=== PATIENT | female | born 1945 | race Caucasian/White ===

== ENCOUNTER 2024-06-27 22:03 | Emergency (ER) | payer MEDICARE, SELFPAY ==
[2024-06-27 22:06] VITALS: BP 129/69; PULSE 63; RESP 16; TEMP 36.2; O2SAT 98; BMI 28.3
--- NOTE | 2024-06-27 22:26 | DI.CT.S_ITS ---
PROCEDURE: CT ANGIO HEAD AND NECK INDICATIONS: slurred speech, droop TECHNIQUE: After the administration of intravenous contrast, 1 mm thick sections acquired from the aortic arch through the [place] of [place]. 3-dimensional gykkjjj-cwuhgsenx-tabfpsmpcm (MIP) and/or volume rendering reformats were acquired of the central intracranial vasculature and neck separately. For radiation dose reduction, the following was used: automated exposure control, adjustment of mA and/or kV according to patient size. COMPARISON: None. FINDINGS: Image quality: Diagnostic. BRAIN: No significant change since same day head CT. HEAD CT ANGIOGRAPHY: Anterior circulation: Intracranial internal carotid arteries are normal in size and flow. The flow within the paired anterior cerebral arteries is normal and symmetric. The flow within the middle cerebral arteries is normal and symmetric. The anterior communicating artery is seen. No aneurysms are seen. Posterior circulation: Visualized portions of the vertebral arteries demonstrate normal caliber, and join to form a normal appearing basilar artery. Flow within the posterior cerebral arteries is normal and symmetric. No aneurysms are seen. NECK CT ANGIOGRAPHY: Carotid system: The great vessels demonstrate a conventional anatomy as they arise from the aortic arch. The origins of the common carotid arteries appear patent. The common carotid arteries demonstrate normal caliber and courses. The bifurcation regions are both widely patent. The internal carotid arteries demonstrate normal calibers and courses. Posterior circulation: The origins of the vertebral arteries both appear widely patent. The more superior extracranial portions of both vertebral arteries also demonstrate normal courses and calibers. They join to form a normal appearing basilar artery. Soft tissues: Visualized neck soft tissues demonstrate no suspicious abnormalities. Bones: No suspicious bony lesions. Visualized cervical spine appears normally aligned. IMPRESSION: No significant intracranial arterial abnormality is seen. No significant abnormality is seen within the arteries of the neck. Any quantitative measurements of stenosis were performed using NASCET criteria. Dictated by: Sha Rosenberg M.D. on 06/27/2024 at 23:02 Approved by: Sha Rosenberg M.D. on 06/27/2024 at 23:04
--- NOTE | 2024-06-27 22:26 | EKG_ITS ---
[address] [address] Test Date: 2024-06-28 Pat Name: Blanca Burkett Department: [facility] Room: Gender: Female [employer] Specialist: INDRA : 1945 Requested By: Order Number: [id number] Reading MD: Noe Bartlett MD Measurements Intervals [place] Rate: 61 P: 55 VA: 184 QRS: 1 QRSD: 78 T: 61 QT: 406 QTc: 408 Interpretive Statements Normal sinus rhythm Possible Anterior infarct , age undetermined Electronically Signed On 06-28-2024 16:29:49 PDT by Noe Bartlett MD
--- NOTE | 2024-06-27 22:26 | DI.CT.S_ITS ---
PROCEDURE: CT STROKE INDICATIONS: slurred speech TECHNIQUE: Noncontrast 4.5 mm thick angled axial sections acquired from the foramen magnum to the vertex, with coronal reformats. For radiation dose reduction, the following was used: automated exposure control, adjustment of mA and/or kV according to patient size. COMPARISON: None. FINDINGS: Image quality: Diagnostic. CSF spaces: Basal cisterns are patent. No extra-axial fluid collections. The ventricles are symmetric in size and shape. Brain: No intracranial bleeds or masses. There is cerebral volume loss for age, with resultant ventricular and sulcal prominence. There are periventricular and deep white matter chronic small vessel ischemic changes. There is intracranial internal carotid artery atherosclerosis. Skull and face: Calvarium and visualized facial bones appear intact, without suspicious lesions. Sinuses: Visualized sinuses and mastoids are clear. IMPRESSION: No acute intracranial pathology. Findings discussed with Dr. Sutton at 10:55 p.m. On 06/27/2024. This study fulfills neurological imaging criteria for inclusion or exclusion of acute stroke therapies based on available published neurological guidelines. Dictated by: Sha Rosenberg M.D. on 06/27/2024 at 22:54 Approved by: Sha Rosenberg M.D. on 06/27/2024 at 22:56
--- NOTE | 2024-06-27 22:30 | PC.NURSE ---
EMD Mank advised about pt symptoms. Orders placed.
[2024-06-27 22:55] LABS: Hematocrit 41.1 % (36-46); Hemoglobin 13.6 g/dL (12.0-16.0); Mean Corpuscular HGB Conc 33.1 % (30-36); Mean Corpuscular Hemoglobin 28.9 PG (26-34); Mean Corpuscular Volume 87.3 fL (80-100); Platelet Count 307 X10^3/uL (150-400); Red Cell Distribution Width 15.1 % (11.6-14.8); White Blood Cell Count 11.6 X10^3/uL (4.5-11.0)
[2024-06-27 22:57] LABS: Add Manual Diff / Slide Review YES
[2024-06-27 23:03] LABS: INR 0.9 (0.9-1.3); Prothrombin Time 10.2 SECONDS (9.4-12.5)
[2024-06-27 23:06] LABS: PTT Partial Thromboplastin Tim 20 SECONDS (25.1-36.5)
[2024-06-27 23:20] LABS: Alanine Aminotransferase 23 IU/L (<35); Albumin 3.9 g/dL (3.5-5.0); Albumin Globulin Ratio 1.6 (1.0-2.8); Alkaline Phosphatase 45 U/L (38-126); Aspartate Aminotransferase 41 IU/L (14-36); BUN Creatinine Ratio 28.4 (6-22); Bilirubin Total 1.8 mg/dL (0.2-1.3); Blood Urea Nitrogen 25 mg/dL (7-17); Calcium 8.9 mg/dL (8.4-10.2); Carbon Dioxide 22 mmol/L (22-32); Chloride 106 mmol/L (98-107); Creatine Kinase 62 U/L (30-135); Estimated Glomerular Filt Rate > 60 mL/min (>60); Ethanol (ETOH) < 10 mg/dL; Globulin 2.5 g/dL (1.7-4.1); Glucose 116 mg/dL (80-110); HEMOLYSIS 30 (0-50); Sodium 134 mmol/L (137-145); Total Protein 6.4 g/dL (6.3-8.2); Troponin I < 0.012 ng/mL (0.01-0.034)
[2024-06-27 23:24] LABS: Neutrophils Absolute Manual 8004 /uL (3000-5900); Total Cells Counted 100
[2024-06-27 23:25] LABS: RBC Morphology Normal Morphology
[2024-06-28] VITALS (13 sets, daily range): BP systolic 134–161; BP diastolic 69–92; PULSE 53–67; RESP 18–22; O2SAT 82–100
--- NOTE | 2024-06-28 00:55 | PC.NURSE ---
EMD Delmerk consulted on pt symptoms. Orders placed.
--- NOTE | 2024-06-28 03:27 | ED_ITS ---
HPI - Neuro Symptoms/Deficit General Chief Complaint: Neuro Symptoms/Deficit Stated Complaint: TIA/Mini-Stroke Concern, Slurring Time Seen by Provider: 06/27/24 22:25 Source: patient, RN notes reviewed and old records reviewed Mode of arrival: Ambulatory Limitations: no limitations History of Present Illness HPI Narrative: 78-year-old female with history of hypertension, dyslipidemia, restless leg on aspirin daily. Patient states today at about 8:30 p.m. she had a little sweaty had some trouble talking for about 5 minutes, there was question if there was facial droop different individuals of stated different things. Patient denies any headache, no numbness tingling or weakness, no weakness on 1 side. No chest pain or shortness of breath, no nausea or vomiting, no issues with bowel movements or urination. Patient has not had any new swelling in her extremities. She did eat and drink after the episode. Patient states she is on medication for hypertension, dyslipidemia, no diabetes she takes aspirin 81 mg daily and medication for sling. States she has had a prior bladder sling and esophageal surgery which sounds like a Margie fundoplication from her description. Has antibiotic allergies to clindamycin, nitrofurantoin sulfa. No tobacco, alcohol or recreational drugs. Patient lives in [place], he is currently tearing with friends. Patient states symptoms are resolved she feels back to normal. On Anticoagulants: No Related Data Allergies Allergy/AdvReac Type Severity Reaction Status Date / Time clindamycin Allergy Intermediate Verified 06/27/24 23:00 nitrofurantoin Allergy Intermediate Verified 06/27/24 23:00 Sulfa (Sulfonamide Allergy Intermediate Verified 06/27/24 23:00 Antibiotics) Review of Systems Review of Systems ROS Unobtainable: All systems reviewed & are unremarkable except as noted in HPI and below Hematologic/Lymphatic On Anticoagulants: No Patient History Social History Smoking Status: Never smoker Smoking Status: Never smoker Exam Narrative Exam Narrative: GEN: well nourished, well appearing female, alert and oriented x 3, patient appears to be in no acute distress. HEENT: Atraumatic, pupils are equal round reactive to light, extraocular movements are intact, nares are clear, TMs are clear with no fluid, there is no conjunctival pallor. Throat is clear without any exudates, erythema, tonsillar enlargement or uvular deviation, no facial droop HEART: Regular rate and rhythm without murmur, clicks, rubs. LUNGS:Lungs clear to auscultation, no wheezes, rales, crackles, chest moves symmetrically ABD:bowel sounds normal, soft, non-tender, no guarding, rebound, rigidity, no masses noted, no hepatosplenomegaly MSCL: Non-tender, no muscle atrophy, muscles strength 5/5 upper and lower extremities, full range of motion, normal gait NEURO:CN 2-12 intact, sensation normal, finger nose finger test normal, heel aguirre test normal, no aphasia or dysarthria. Initial Vital Signs Initial Vital Signs: Vital Signs Temperature 97.1 F L 06/27/24 22:06 Pulse Rate 63 06/27/24 22:06 Respiratory Rate 16 06/27/24 22:06 Blood Pressure 129/69 06/27/24 22:06 Pulse Oximetry 98 06/27/24 22:06 Oxygen Delivery Method Room Air 06/27/24 22:06 Scores NIH Stroke Scale Level of Conciousness: Alert, keenly responsive Ask month/age: Answers both questions correctly. Open/close eyes, close hand: Performs both tasks correctly Best gaze horizontal: Normal Visual lake: No visual loss Facial palsy: Normal symetrical movement Left arm drift: No drift for full 10 sec Right arm drift: No drift for full 10 sec Left leg drift: No drift for full 5 sec Right leg drift: No drift for full 5 sec Limb ataxia: Absent Sensory on face/arms/legs: Normal, no sensory loss Best language: No aphasia, normal Dysarthria: Normal Extinction or inattention: No abnormality Total NIH Stroke scale score: 0 Course Orders Ordered: ED Orders 06/27/24 22:[address] angio head and neck Stat Urine Drug Screen, Rapid Stat EKG-12 Lead Stat 06/27/24 22:37 Complete Blood Count AUTO DIFF Stat Comprehensive Metabolic Panel Stat Ethanol (ETOH) Stat PTT Partial Thromboplastin [place] Stat Prothrombin Time INR Stat Troponin & CK Cardiac Panel Stat 06/28/24 03:25 Urinalysis and Microscopic Stat Vital Signs Vital signs: Vital Signs - 8 hr 06/28/24 01:22 06/28/24 01:23 06/28/24 01:23 Pulse Rate 59 L 60 Respiratory Rate Blood Pressure 134/76 Pulse Oximetry 82 L 100 06/28/24 01:30 06/28/24 01:30 06/28/24 02:00 Pulse Rate 60 Respiratory Rate Blood Pressure 135/85 146/92 H Pulse Oximetry 100 06/28/24 02:00 06/28/24 02:30 06/28/24 02:31 Pulse Rate 58 L 53 L Respiratory Rate Blood Pressure 139/69 Pulse Oximetry 100 100 06/28/24 02:31 06/28/24 03:00 06/28/24 03:00 Pulse Rate 54 L 59 L Respiratory Rate Blood Pressure 145/83 H Pulse Oximetry 98 100 06/28/24 03:28 06/28/24 03:28 06/28/24 03:30 Pulse Rate 64 Respiratory Rate Blood Pressure 147/75 H 159/76 H Pulse Oximetry 92 06/28/24 03:30 06/28/24 04:00 06/28/24 04:00 Pulse Rate 62 55 L Respiratory Rate Blood Pressure 157/74 H Pulse Oximetry 100 97 06/28/24 04:30 06/28/24 04:30 06/28/24 05:00 Pulse Rate 64 Respiratory Rate Blood Pressure 139/90 161/73 H Pulse Oximetry 94 06/28/24 05:00 06/28/24 05:30 06/28/24 05:30 Pulse Rate 63 67 Respiratory Rate 22 18 Blood Pressure 149/71 H Pulse Oximetry 98 96 MDM - Neuro Symptoms/Deficit Lab Data 06/27/24 22:37 06/27/24 22:37 Labs: Lab Results 06/27/24 06/28/24 06/28/24 Range/Units 22:37 03:25 03:25 WBC 11.6 H (4.5-11.0) X10^3/uL RBC 4.70 (4.0-5.2) X10^6/uL Hgb 13.6 (12.0-16.0) g/dL Hct 41.1 (36-46) % MCV 87.3 (80-100) fL MCH 28.9 (26-34) PG MCHC 33.1 (30-36) % RDW 15.1 H (11.6-14.8) % Plt Count 307 (150-400) X10^3/uL Neut % (Auto) Not Reportable Lymph % (Auto) Not Reportable [place] % (Auto) Not Reportable Eos % (Auto) Not Reportable Baso % (Auto) Not Reportable Lymph # (Auto) Not Reportable [place] # (Auto) Not Reportable Baso # (Auto) Not Reportable Total Counted 100 Seg Neutrophils % 69.0 (38-70) % Lymphocytes % (Manual) 20.0 L (25-45) % Monocytes % (Manual) 5.0 (2-11) % Eosinophils % (Manual) 2.0 (2-4) % Metamyelocytes % 3.0 H (-0) % Myelocytes % 1.0 H (-0) % Neutrophils # (Manual) 8004 H (4186-0759) /uL RBC Morphology Normal morphology PT 10.2 (9.4-12.5) SECONDS INR 0.9 (0.9-1.3) APTT 20 L (25.1-36.5) SECONDS Sodium 134 L (137-145) mmol/L Potassium 4.0 (3.4-5.1) mmol/L Chloride 106 (98-107) mmol/L Carbon Dioxide 22 (22-32) mmol/L BUN 25 H (7-17) mg/dL Creatinine 0.88 (0.52-1.04) mg/dL Estimated GFR > 60 (>60) mL/min BUN/Creatinine Ratio 28.4 H (6-22) Glucose 116 H (80-110) mg/dL Calcium 8.9 (8.4-10.2) mg/dL Total Bilirubin 1.8 H (0.2-1.3) mg/dL AST 41 H (14-36) IU/L ALT 23 (<35) IU/L Alkaline Phosphatase 45 (38-126) U/L Total Creatine Kinase 62 (30-135) U/L Troponin I < 0.012 (0.01-0.034) ng/mL Total Protein 6.4 (6.3-8.2) g/dL Albumin 3.9 (3.5-5.0) g/dL Globulin 2.5 (1.7-4.1) g/dL Albumin/Globulin Ratio 1.6 (1.0-2.8) Urine Color Yellow Urine Appearance Clear Urine pH 6.0 Normal (4.5-8.0) Ur Specific [place] 1.010 (1.000-1.035) Urine Protein Negative (Negative) Urine Glucose (UA) Negative (Negative) g/dL Urine Ketones Negative (NEGATIVE) Urine Occult Blood Negative (Negative) Urine Nitrate Negative (Negative) Urine Bilirubin Negative (NEGATIVE) Urine Urobilinogen 0.2 (0.2) E.U./dL Ur Leukocyte Esterase Negative (NEGATIVE) Urine RBC 0-1/hpf (0-5/HPF) Urine WBC 0-1/hpf (0-5/HPF) Ur Squamous Epith Cells None seen (0-5/HPF) Urine Bacteria None seen (None) Ur Culture Indicated? Cult not indicated Vol Urine Centrifuged 10ml (spun) U Opiates 300ng/mL cut Negative (Negative) Ur Oxycodone Screen Negative (Negative) Urine Methadone Screen Negative (Negative) Ur Barbiturates Screen Negative (Negative) U Tricyclic Antidepress Negative (Negative) Ur Phencyclidine Scrn Negative (Negative) Ur Amphetamines Screen Negative (Negative) U Methamphetamines Scrn Negative (Negative) Ur MDMA Scrn (Ecstasy) Negative (Negative) U Benzodiazepines Scrn Negative (Negative) Urine Cocaine Screen Negative (Negative) U Marijuana (THC) Screen Negative (Negative) Urine Specific [place] Normal (Normal) Ethyl Alcohol < 10 ( - 10) mg/dL Ur Creatinine Normal (Normal) Point of Care Testing Glucose POC [address] scan - head: Radiologist's Impression: Blanca Burkett??78??F??1945 ? Allergy/Adv: clindamycin, nitrofurantoin, Sulfa (Sulfonamide Antibiotics) (More??) Close Head/Neck CTA (Signed) Sha Rosenberg - 06/27/[address] (Signed) Sha Rosenberg - 06/27/24 [place] [address] CT Scan Report Signed Patient: Blanca Burkett MR#: [id number] : 1945 Acct:[id number] Age/Sex: 78 / F Date of Service: 06/27/24 Loc: ED Accession Number: [id number] Procedure: CT Stroke Ordering Provider: Melonie Sutton D.O. PROCEDURE: CT STROKE INDICATIONS: slurred speech TECHNIQUE: Noncontrast 4.5 mm thick angled axial sections acquired from the foramen magnum to the vertex, with coronal reformats. For radiation dose reduction, the following was used: automated exposure control, adjustment of mA and/or kV according to patient size. COMPARISON: None. FINDINGS: Image quality: Diagnostic. CSF spaces: Basal cisterns are patent. No extra-axial fluid collections. The ventricles are symmetric in size and shape. Brain: No intracranial bleeds or masses. There is cerebral volume loss for age, with resultant ventricular and sulcal prominence. There are periventricular and deep white matter chronic small vessel ischemic changes. There is intracranial internal carotid artery atherosclerosis. Skull and face: Calvarium and visualized facial bones appear intact, without suspicious lesions. Sinuses: Visualized sinuses and mastoids are clear. IMPRESSION: No acute intracranial pathology. Findings discussed with Dr. Sutton at 10:55 p.m. On 06/27/2024. This study fulfills neurological imaging criteria for inclusion or exclusion of acute stroke therapies based on available published neurological guidelines. Dictated by: Sha Rosenberg M.D. on 06/27/2024 at 22:54 Approved by: Sha Rosenberg M.D. on 06/27/2024 at 22:56 CTA - brain/neck: Radiologist's Impression: Close Head/Neck CTA (Signed) Sha Rosenberg - 06/27/[address] (Signed) Sha Rosenberg - 06/27/24 [place] [address] CT Scan Report Signed Patient: Blanca Burkett MR#: [id number] : 1945 Acct:[id number] Age/Sex: 78 / F Date of Service: 06/27/24 Loc: ED Accession Number: [id number] Procedure: CT angio head and neck Ordering Provider: Melonie Sutton D.O. PROCEDURE: CT ANGIO HEAD AND NECK INDICATIONS: slurred speech, droop TECHNIQUE: After the administration of intravenous contrast, 1 mm thick sections acquired from the aortic arch through the [place] of [place]. 3-dimensional rkqfmgd-aqkyiwmgl-huemgxplxy (MIP) and/or volume rendering reformats were acquired of the central intracranial vasculature and neck separately. For radiation dose reduction, the following was used: automated exposure control, adjustment of mA and/or kV according to patient size. COMPARISON: None. FINDINGS: Image quality: Diagnostic. BRAIN: No significant change since same day head CT. HEAD CT ANGIOGRAPHY: Anterior circulation: Intracranial internal carotid arteries are normal in size and flow. The flow within the paired anterior cerebral arteries is normal and symmetric. The flow within the middle cerebral arteries is normal and symmetric. The anterior communicating artery is seen. No aneurysms are seen. Posterior circulation: Visualized portions of the vertebral arteries demonstrate normal caliber, and join to form a normal appearing basilar artery. Flow within the posterior cerebral arteries is normal and symmetric. No aneurysms are seen. NECK CT ANGIOGRAPHY: Carotid system: The great vessels demonstrate a conventional anatomy as they arise from the aortic arch. The origins of the common carotid arteries appear patent. The common carotid arteries demonstrate normal caliber and courses. The bifurcation regions are both widely patent. The internal carotid arteries demonstrate normal calibers and courses. Posterior circulation: The origins of the vertebral arteries both appear widely patent. The more superior extracranial portions of both vertebral arteries also demonstrate normal courses and calibers. They join to form a normal appearing basilar artery. Soft tissues: Visualized neck soft tissues demonstrate no suspicious abnormalities. Bones: No suspicious bony lesions. Visualized cervical spine appears normally aligned. IMPRESSION: No significant intracranial arterial abnormality is seen. No significant abnormality is seen within the arteries of the neck. Any quantitative measurements of stenosis were performed using NASCET criteria. Dictated by: Sha Rosenberg M.D. on 06/27/2024 at 23:02 Approved by: Sha Rosenberg M.D. on 06/27/2024 at 23:04 ECG Data Attestation: I personally reviewed and interpreted this ECG as follows: Prior ECG tracings: not available for review Interpretation: Sinus rhythm rate of 61 [place] 184 QRS is 78 QTC of 408. No acute ST changes appreciated. No priors for comparison. MDM Narrative Medical decision making narrative: 78-year-old female who was on a boat, around 20 30 caught sweaty had some slurred speech that has since resolved. States it lasted 10 minutes. Has a history of hypertension but no other medical history visiting from [place]. Patient's NIH is 0. Discussed findings today with patient, she is unaware of any changes to her white count or metamyelocytes in the past. Discussed she needs to follow up with your physician we will give a copy of her CBC. Discussed patient may have had possible TIA, discussed observation but she prefers to be discharged. Discussed if she is any recurrent symptoms should go to the closest ER. She took all her home evening medications today. Patient does have a possibility of hypoglycemia although no diabetes but she did eat and drink after the episode. Labs show white count 11.6 hemoglobin of 13.6, platelets of 307, low neutrophils, 3% metamyelocytes. INR 0.9. Sodium is 134 potassium 4 chloride 106 CO2 is 22 with a BUN 25 creatinine 0.88, glucose is 116 calcium is 8.9 bilirubin is 1.8, AST is 41 with a ALT of 23 alk-phos of 45 troponins less than 0.012. ETOH is less than 10 Patient does not have any priors for comparison. Head CT shows no acute change. Results were called to myself by Dr. Rosenberg CT angio head and neck shows no acute intracranial abnormalities or changes to the arteries of the neck. EKG shows sinus rhythm, rate of 61 [place] 184 QRS 70 QTC of 408, no acute ST changes. Discharge Plan Departure Patient Disposition: Home Clinical Impression: Episode of change in speech Instructions: DI for Transient Ischemic Attack Activity Restrictions/Additional Instructions: Follow up with your physician for recheck, you have a slightly elevated white blood cell count but you do have metamyelocytes on your differential. There is a copy of your labs please share this with your physician so you can follow-up these results. Your workup today did not show any obvious changes such as bleeding, aneurysm or dissection, it was possible that you had a TIA today. I would recommend you continue with your medications and talk with your physician about further workup. Please make sure to continue your aspirin daily. Please return for recurrent headaches, new difficulty with speech, facial droop, numbness tingling or weakness of your extremities, any difficulty with ambulation or movement, passing out or other new or concerning changes. Stand Alone Forms: Patient Portal/API
[2024-06-28 03:35] LABS: Appearance Urine UA CLEAR; Bilirubin Urine UA NEGATIVE (NEGATIVE); Color Urine UA YELLOW; Glucose Urine UA NEGATIVE (Negative); Ketones Urine UA NEGATIVE (NEGATIVE); Leukocyte Esterase Urine UA NEGATIVE (NEGATIVE); Nitrite Urine UA NEGATIVE (Negative); Occult Blood Urine UA NEGATIVE (Negative); Protein Urine UA NEGATIVE (Negative); Urobilinogen Urine UA 0.2 E.U./dL (0.2)
[2024-06-28 03:39] LABS: UR Morphine/Opiate cutoff 300 Negative (Negative); Ur Creatinine Normal (Normal); Ur Specific Gravity Normal (Normal); Urine Amphetamines Negative (Negative); Urine Barbiturates Negative (Negative); Urine Benzodiazepines Negative (Negative); Urine Cocaine Negative (Negative); Urine MDMA Negative (Negative); Urine Methadone Negative (Negative); Urine Methamphetamines Negative (Negative); Urine Oxycodone Negative (Negative); Urine Phencyclidine Negative (Negative); Urine Tetrahydrocannabinol Negative (Negative); Urine Tricyclic Antidepressant Negative (Negative); Urine pH Normal (Normal)
[2024-06-28 04:19] LABS: Bacteria Urine None Seen; RBC Urine 0-1/HPF (0-5/HPF); Squamous Epithelial Cell Urine None Seen (0-5/HPF); Urine Volume 10mL (spun); WBC Urine 0-1/HPF (0-5/HPF)
[2024-06-28 04:20] LABS: Culture Indicated Urine Cult Not Indicated
--- NOTE | 2024-06-28 04:25 | PC.NURSE ---
Pt placed on cardiac leads per EMD Mank. Pt being monoitored until [employer] opens for rides at 0600.
== END 2024-06-28 06:15 | disposition home or self-care (01) ==
PROVIDERS: Emergency Provider Emergency Medicine
DX: R47.89 Other speech disturbances (principal); R29.810 Facial weakness; R79.89 Other specified abnormal findings of blood chemistry
CPT/HCPCS: 36415; 70450; 70496; 70498; 80053; 80305; 80320; 81001; 82550; 82962; 84484; 85007; 85025; 85610; 85730; 93005; 99284; Q9967